=== PATIENT | male | born 1950 | race African-American/Black ===

== ENCOUNTER 2021-08-16 00:16 | Inpatient (IN) | payer MEDICARE ==
[2021-08-16 05:14] VITALS: BMI 19.1
[2021-08-16] MEDS ORDERED: Ondansetron PF 4 MG/2 ML Vial IVP PRN (07:35)
[2021-08-16] MEDS ORDERED: Acetaminophen 325 MG TAB PO PRN (07:35)
[2021-08-16] MEDS ORDERED: hydrALAZINE 20 MG/ML VIAL SLOW IVP PRN (07:35)
[2021-08-16 08:21] LABS: #Eosinphils 0.2 thou/uL (0.0-0.7); #Lymphocytes 1.5 thou/uL (1.20-3.40); #Monocytes 0.6 thou/uL (0.11-0.59); #Neutrophils 2.3 thou/uL (1.40-6.50); %Basophils 0.5 % (0.0-1.0); %Eosinophils 4.3 % (0.0-10.0); %Lymphocytes 32.6 % (21.0-51.0); %Monocytes 12.3 % (0.0-10.0); %Neutrophils 50.3 % (42.0-75.0); Hemoglobin 11.5 g/dL (14.0-18.0); Mean Corpuscular HGB CONC 31.8 g/dL (32.0-36.0); Mean Corpuscular Hemoglobin 31.2 pg (27.0-31.0); Mean Corpuscular Volume 98.2 fL (78.0-98.0); Mean Platelet Volume 8.4 fL (7.4-10.4); Platelet Count 128 thou/uL (130-400); RBC Distribution Width 12.8 % (11.5-14.5); Red Blood Cell (RBC) Count 3.68 mill/uL (4.70-6.10); White Blood Cell (WBC) Count 4.5 thou/uL (4.8-10.8)
[2021-08-16 08:35] LABS: Prothrombin Time 13.2 sec (12.0-14.7)
[2021-08-16 08:36] LABS: PTT 29.8 sec (22.9-36.1)
[2021-08-16 08:40] LABS: Anion Gap 12 mmol/L (10-20); BUN (Urea Nitrogen) 40 mg/dL (8.4-25.7); Calc. Creatinine Clearance 24 mL/min (70-130); Calcium 8.4 mg/dL (7.8-10.44); Carbon Dioxide 19 mmol/L (23-31); Chloride 111 mmol/L (98-107); Glucose 98 mg/dL (80-115); Potassium 4.1 mmol/L (3.5-5.1); Sodium 138 mmol/L (136-145)
[2021-08-16] MEDS: Aspirin 81 mg Enteric Coated Tablet PO SCH (08:51)
[2021-08-16] MEDS: Enoxaparin Sodium 30 MG/0.3 ML SYRINGE SC SCH (08:51)
[2021-08-16 12:47] LABS: Bacteria/HPF None Seen HPF (None Seen); Bilirubin Negative (Negative); Blood, Urine Negative (Negative); Clarity Clear (Clear); Glucose, Urine (Dipstick) Normal (Negative); Ketone, Urine Negative (Negative); Leukocyte Negative Leu/uL (Negative); Nitrite Negative (Negative); Protein, Urine (Dipstick) Negative (Neg-Trace); RBC/HPF 0-3 HPF (0-3); Specific Gravity, Urine 1.017 (1.002-1.036); Squamous Epithelial None Seen HPF (0-3); Urobilinogen Normal mg/dL (Less than 2); WBC/HPF None Seen HPF (0-3)
[2021-08-16] MEDS ORDERED: Sodium Chloride 0.9% 1,000 ML IV SCH (17:15)
[2021-08-16] MEDS: Atorvastatin Calcium 40 MG TAB PO SCH (20:54)
[2021-08-16] MEDS: Pilocarpine 1% Ophth Drops 15 ML BOT L EYE SCH (20:57)
[2021-08-16] MEDS: Latanoprost 0.005% Ophth Soln 2.5 ml Bottle EA EYE SCH (20:57)
[2021-08-16] MEDS ORDERED: Imatinib Mesylate [Gleevec] 100 MG Tablet PO SCH (21:00)
[2021-08-16] MEDS: Dorzolamide HCl 2% Ophth Soln 10 ml Bottle L EYE SCH (21:28)
[2021-08-17 06:33] LABS: Cardiac Risk 3.9 (Less than 4.5)
[2021-08-17] MEDS: Aspirin 81 mg Enteric Coated Tablet PO SCH (09:21)
[2021-08-17] MEDS: Enoxaparin Sodium 30 MG/0.3 ML SYRINGE SC SCH (09:21)
[2021-08-17] MEDS: Dorzolamide HCl 2% Ophth Soln 10 ml Bottle L EYE SCH ×2 (09:22→20:39)
[2021-08-17] MEDS: Loteprednol Etabonate 0.5% Ophth Suspension 5 ml Bottle R EYE SCH (09:22)
[2021-08-17] MEDS: Pilocarpine 1% Ophth Drops 15 ML BOT L EYE SCH ×4 (09:24→20:40)
[2021-08-17] MEDS: Atorvastatin Calcium 40 MG TAB PO SCH (20:39)
[2021-08-17] MEDS: Latanoprost 0.005% Ophth Soln 2.5 ml Bottle EA EYE SCH (20:39)
[2021-08-18 05:41] LABS: #Basophils 0.1 thou/uL (0.0-0.2); #Eosinphils 0.3 thou/uL (0.0-0.7); #Lymphocytes 1.2 thou/uL (1.20-3.40); #Monocytes 0.6 thou/uL (0.11-0.59); %Basophils 1.1 % (0.0-1.0); %Eosinophils 5.3 % (0.0-10.0); %Lymphocytes 23.7 % (21.0-51.0); %Neutrophils 57.9 % (42.0-75.0); Hemoglobin 11.7 g/dL (14.0-18.0); Mean Corpuscular HGB CONC 31.8 g/dL (32.0-36.0); Mean Corpuscular Hemoglobin 31.5 pg (27.0-31.0); Mean Corpuscular Volume 99.1 fL (78.0-98.0); Mean Platelet Volume 8.9 fL (7.4-10.4); Platelet Count 129 thou/uL (130-400); RBC Distribution Width 12.8 % (11.5-14.5); Red Blood Cell (RBC) Count 3.71 mill/uL (4.70-6.10); White Blood Cell (WBC) Count 5.2 thou/uL (4.8-10.8)
[2021-08-18] MEDS: Enoxaparin Sodium 30 MG/0.3 ML SYRINGE SC SCH (09:16)
[2021-08-18] MEDS: Dorzolamide HCl 2% Ophth Soln 10 ml Bottle L EYE SCH ×2 (09:17→21:06)
[2021-08-18] MEDS: Pilocarpine 1% Ophth Drops 15 ML BOT L EYE SCH ×4 (09:17→21:06)
[2021-08-18] MEDS: Loteprednol Etabonate 0.5% Ophth Suspension 5 ml Bottle R EYE SCH (09:17)
[2021-08-18] MEDS: Aspirin 81 mg Enteric Coated Tablet PO SCH (09:17)
[2021-08-18 09:20] LABS: Anion Gap 13 mmol/L (10-20); BUN (Urea Nitrogen) 35 mg/dL (8.4-25.7); Calc. Creatinine Clearance 28 mL/min (70-130); Calcium 8.9 mg/dL (7.8-10.44); Carbon Dioxide 16 mmol/L (23-31); Chloride 110 mmol/L (98-107); Glucose 125 mg/dL (80-115); Potassium 4.6 mmol/L (3.5-5.1); Sodium 134 mmol/L (136-145)
[2021-08-18] MEDS ORDERED: Sodium Bicarbonate 150 MEQ in Dextrose 5% in Water 1,000 ML IV SCH (14:00)
[2021-08-18 17:07] LABS: Creatinine, Urine 89.86 mg/dL (63-166); Protein, Urine Random Quant Less than 10 mg/dL (1-14); Sodium, Urine 141 mmol/L (Not Available); Urea Nitrogen, Random Urine 780 mg/dl
[2021-08-18] MEDS: Atorvastatin Calcium 40 MG TAB PO SCH (21:05)
[2021-08-18] MEDS: Latanoprost 0.005% Ophth Soln 2.5 ml Bottle EA EYE SCH (21:10)
[2021-08-19 05:52] LABS: #Eosinphils 0.3 thou/uL (0.0-0.7); #Lymphocytes 1.4 thou/uL (1.20-3.40); #Monocytes 0.7 thou/uL (0.11-0.59); %Basophils 0.5 % (0.0-1.0); %Eosinophils 4.9 % (0.0-10.0); %Monocytes 12.9 % (0.0-10.0); %Neutrophils 55.7 % (42.0-75.0); Hemoglobin 11.6 g/dL (14.0-18.0); Mean Corpuscular HGB CONC 32.4 g/dL (32.0-36.0); Mean Corpuscular Hemoglobin 31.7 pg (27.0-31.0); Mean Corpuscular Volume 97.7 fL (78.0-98.0); Mean Platelet Volume 9.2 fL (7.4-10.4); Platelet Count 130 thou/uL (130-400); RBC Distribution Width 12.8 % (11.5-14.5); Red Blood Cell (RBC) Count 3.67 mill/uL (4.70-6.10); White Blood Cell (WBC) Count 5.4 thou/uL (4.8-10.8)
[2021-08-19 06:05] LABS: Albumin 3.3 g/dL (3.4-4.8); Anion Gap 11 mmol/L (10-20); BUN (Urea Nitrogen) 35 mg/dL (8.4-25.7); BUN/Creatinine Ratio 15.49; Calc. Creatinine Clearance 29 mL/min (70-130); Calcium 8.7 mg/dL (7.8-10.44); Carbon Dioxide 25 mmol/L (23-31); Chloride 104 mmol/L (98-107); Glucose 102 mg/dL (80-115); Phosphorus 2.9 mg/dL (2.3-4.7); Potassium 4.1 mmol/L (3.5-5.1); Sodium 136 mmol/L (136-145)
[2021-08-19] MEDS: Loteprednol Etabonate 0.5% Ophth Suspension 5 ml Bottle R EYE SCH (09:25)
[2021-08-19] MEDS: Enoxaparin Sodium 30 MG/0.3 ML SYRINGE SC SCH (09:25)
[2021-08-19] MEDS: Dorzolamide HCl 2% Ophth Soln 10 ml Bottle L EYE SCH (09:25)
[2021-08-19] MEDS: Aspirin 81 mg Enteric Coated Tablet PO SCH (09:25)
[2021-08-19] MEDS: Pilocarpine 1% Ophth Drops 15 ML BOT L EYE SCH ×2 (09:26→13:20)
[2021-08-19 12:16] VITALS: BP 110/87; TEMP 98.5
== END 2021-08-19 16:16 | disposition home health service (06) | DRG 65 ==
LOC: NEURO 00:16 → OBSVTOIN 17:29
PROVIDERS: ADMIT Student in an Organized Health Care Education/Training Program; ATTEND Internal Medicine
DX: I63.9 Cerebral infarction, unspecified (principal); G45.9 Transient cerebral ischemic attack, unspecified; E87.2 Acidosis; E87.1 Hypo-osmolality and hyponatremia; C92.10 Chronic myeloid leukemia, BCR/ABL-positive, not having achieved remission; R47.01 Aphasia; I65.29 Occlusion and stenosis of unspecified carotid artery; F17.210 Nicotine dependence, cigarettes, uncomplicated; I12.9 Hypertensive chronic kidney disease with stage 1 through stage 4 chronic kidney disease, or unspecified chronic kidney disease; H40.9 Unspecified glaucoma; H54.8 Legal blindness, as defined in USA; Z79.899 Other long term (current) drug therapy; Z80.3 Family history of malignant neoplasm of breast; Z80.8 Family history of malignant neoplasm of other organs or systems
CPT/HCPCS: 36415; 70551; 76770; 80048; 80061; 80069; 81001; 82040; 82570; 84156; 84300; 84540; 85025; 85610; 85730; 93306; 93880; 96372; G0378; J1650; J7070